=== PATIENT | male | born 1995 | race Caucasian/White ===

== ENCOUNTER 2016-11-06 13:21 | Emergency (ER) | payer OTHER ==
[2016-11-06 13:37] VITALS: BP 152/73
[2016-11-06] MEDS ORDERED: PERIOGARD473 ML PO (13:57)
[2016-11-06] MEDS ORDERED: IBUPROFEN800 M1 PO (13:57)
[2016-11-06] MEDS ORDERED: AMOXICILLIN500 M3 PO (13:57)
--- NOTE | 2016-11-06 13:57 | ED THROAT/DENTAL COMPLAINT ---
History of Present Illness General Chief Complaint: General Adult Stated Complaint: "MY GUM HAVE A LOT OF PAIN IN THEM" Source: patient Exam Limitations: no limitations Vital Signs & Intake/Output Vital Signs & Intake/Output Vital Signs Date Time Temp Pulse Resp B/P Pulse O2 O2 Flow FiO2 Ox Delivery Rate 11/06 1337 98.1 88 20 152/73 97 Allergies Coded Allergies: NO KNOWN ALLERGIES (01/05/13) Reconcile Medications Amoxicillin 500 MG TABLET 1 TAB PO TID dental abscess Chlorhexidine Gluconate (Periogard) 0.12 % MOUTHWASH 15 ML PO BID dental infection Ibuprofen 800 MG TABLET 1 TAB PO TID pain Triage Note: PER PT TOOTHACHE AND NO TIME TO GO TO DENTIST. Triage Nurses Notes Reviewed? yes Onset: Abrupt Duration: day(s): (2), constant, continues in ED Timing: recent history Severity: moderate No Modifying Factors: none HPI: 21-year-old male comes into emergency room for further evaluation of right frontal tooth pain and swelling to his gumline. Symptoms began going on for the past 2 days. Denies any fever chills vomiting. Denies any trauma. Sharp pain. Continues. Nonradiating. Denies any other associated symptoms. (GABRIEL BELL) Past History Travel History Traveled to [place] past 21 day No Medical History Any Pertinent Medical History? see below for history Neurological: NONE EENT: NONE Cardiovascular: NONE Respiratory: NONE Gastrointestinal: NONE Hepatic: NONE Renal: NONE Musculoskeletal: NONE Psychiatric: NONE Endocrine: NONE Tetanus Vaccine: 06/01/14 Surgical History Surgical History: non-contributory Psychosocial History What is your primary language Persian Tobacco Use: Never used Family History Hx Contributory? No (GABRIEL BELL) Review of Systems Review of Systems Constitutional: Reports: no symptoms. EENTM: Reports: see HPI. Respiratory: Reports: no symptoms. Cardiovascular: Reports: no symptoms. GI: Reports: no symptoms. Genitourinary: Reports: no symptoms. Musculoskeletal: Reports: no symptoms. Skin: Reports: no symptoms. Neurological/Psychological: Reports: no symptoms. Hematologic/Endocrine: Reports: no symptoms. Immunologic/Allergic: Reports: no symptoms. All Other Systems: Reviewed and Negative (GABRIEL BELL) Physical Exam Physical Exam General Appearance: well developed/nourished, no apparent distress, alert, awake Head: atraumatic, normal appearance Eyes: Bilateral: normal appearance, EOMI. Nose: normal inspection Mouth/Throat: dental tenderness, swelling to gums above right frontal incisor, fluctuant Neck: normal inspection, full range of motion Cardiovascular/Respiratory: no respiratory distress Back: normal inspection Neurologic/Psych: awake, alert, oriented x 3, normal gait Skin: intact, normal color Core Measures ACS in differential dx? No Severe Sepsis Present: No Septic Shock Present: No (GABRIEL BELL) Progress Differential Diagnosis: aspirated tooth, carious tooth, odontogenic abscess, tanika-tonsillar abscess, pharyngeal for. body, stomatitis/gingivitis, strep pharyngitis, tooth fracture Plan of Care: 11/06/2016 2:15:10 PM Patient clinically looks well. Nontoxic-appearing. Abscess drained. Patient started on antibiotics. Referred to his dentist. Return if any concerns. (GABRIEL BELL) Departure Departure Disposition: HOME OR SELF CARE Condition: Stable Clinical Impression Primary Impression: Dental abscess Referrals: PATIENT HAS NO PRIMARY CARE DR (PCP/Family) Additional Instructions: Taking amoxicillin and ibuprofen as prescribed. Follow-up with dentist. Return if any concerns worsening symptoms. Rinse the area with Tanika-Guard rinse. Please go over all results of today's visit with your primary care doctor. Contact your primary care doctor to let them know you were here in the emergency room. There may be nonspecific findings which may not be related to your visit today here in the emergency room but may require further evaluation and chronic monitoring by your primary care doctor. If you had a laceration today the chance of foreign body always remains. You should follow-up with your primary care doctor for recheck in 3-5 days for a wound check. If you had an x-ray done there is a chance that a fracture could have been missed on initial read and you should follow-up with your primary care doctor for repeat x-rays if symptoms persist. If your blood pressure was elevated here in the emergency room please have rechecked by her primary care doctor within the next 48 hours by your primary care doctor. If you were prescribed a narcotic here in the emergency room or any type of controlled substances you're not allowed to drive while taking this medication or operate any type of heavy machinery. Narcotics can make you feel lightheaded dizziness nausea and can cause constipation. You may need to medicinal plant picker a stool softener. Thank you for choosing [facility] emergency room. Please return to the emergency room immediately if you have any other concerns worsening of symptoms. Departure Forms: Customer Survey General Discharge Information Prescriptions: Current Visit Scripts Amoxicillin 1 TAB PO TID #30 TAB Ibuprofen 1 TAB PO TID #30 TAB Chlorhexidine Gluconate (Periogard) 15 ML PO BID #473 ML (GABRIEL BELL) PA/[employer]ESSOR [employer] Co-Sign Statement Statement: ED Attending supervision documentation- [] I saw and evaluated the patient. I have also reviewed all the pertinent lab results and diagnostic results. I agree with the findings and the plan of care as documented in the PA's/[employer]'s documentation. [X] I have reviewed the ED Record and agree with the PA's/[employer]'s documentation. [] Additions or exceptions (if any) to the PAs/PR[employer]ESS[employer]'s note and plan are summarized below: [] (BROOKLYN ARAGON,REANNA Moran) Procedures Incision and Drainage Site: dental Blade Size: 18-gauge needle Progress: Small needle aspiration, patient declined any local anesthesia, 3 mL of pus drained, (GABRIEL BELL)
== END 2016-11-06 14:10 ==
LOC: ERH 13:21
DX: K04.7 Periapical abscess without sinus (principal)